=== PATIENT | female | born 1980 | race Caucasian/White ===

== ENCOUNTER 2019-10-04 05:44 | Observation (INO) | payer BC, OTHER ==
[2019-10-04] MEDS ORDERED: Albuterol/Ipratropium NEB.SOL* Albuterol 2.5 MG/Ipratropium 0.5 MG 3 ML INH ONE ×3 (05:54→09:23)
--- NOTE | 2019-10-04 05:57 | ED ---
Shortness of Breath - HPI Summary HPI Summary: Pt. is a 39 y.o female who presents to the ER for worsening cough and SOB. pt. states she was dx with pneumonia last week and just finished a zpak. Pt. states she was starting to feel better until this morning when she felt more short of breath. Pt. tried her albuterol inhaler without improvement. Pt. states she is prone to respiratory infection. 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 Pt. other humphreys denies past medical hx. Sxs are moderate in severity. No current modifying factors. - History of Current Complaint Chief Complaint: EDShortnessOfBreath Time Seen by Provider: 10/04/19 05:50 Hx Obtained From: Patient - Allergy/Home Medications Allergies/Adverse Reactions: Allergies Allergy/AdvReac Type Severity Reaction Status Date / Time No Known Allergies Allergy Verified 10/04/19 05:45 PMH/Surg Hx/FS Hx/Imm Hx Previously Healthy: Yes Infectious Disease History: No Infectious Disease History: Denies: Traveled Outside the [place] in Last 30 Days - Family History Known Family History: Positive: Non-Contributory - Social History Occupation: Employed Full-time Lives: With Family Review of Systems Constitutional: Negative Negative: Fever ENT: Negative Cardiovascular: Negative Negative: Palpitations, Chest Pain Positive: Shortness Of Breath, Cough Gastrointestinal: Negative Negative: Abdominal Pain, Vomiting, Diarrhea Genitourinary: Negative Skin: Negative Neurological: Negative All Other Systems Reviewed And Are Negative: Yes Physical Exam Triage Information Reviewed: Yes Vital Signs On Initial Exam: Initial Vitals Temp Pulse Resp BP Pulse Ox 97.6 F 82 16 119/93 92 10/04/19 05:44 10/04/19 05:44 10/04/19 05:44 10/04/19 05:44 10/04/19 05:44 Vital Signs Reviewed: Yes Appearance: Positive: No Pain Distress - Pt. sitting up in bed in NAD. Audible wheezing noted. Able to speak in full sentences. Skin: Positive: Warm, Dry Head/Face: Positive: Normal Head/Face Inspection Eyes: Positive: Normal, EOMI, SUKUMAR Neck: Positive: Supple Respiratory/Lung Sounds: Positive: Other Procedures - Sedation Patient Received Moderate/Deep Sedation with Procedure: No Diagnostics - Vital Signs Vital Signs Temp Pulse Resp BP Pulse Ox 01/13/20 05:44 97.6 F 82 16 119/93 92 - Laboratory Result Diagrams: 10/04/19 06:19 10/04/19 06:19 Lab Statement: Any lab studies that have been ordered have been reviewed, and results considered in the medical decision making process. Course/Dx - Course Course Of Treatment: Patient presenting with worsening shortness of breath and wheezing. She is afebrile. Oxygen sats are 92 percent on room air. Patient started on DuoNeb neb. We'll obtain labs and chest x-ray. CXR per radiology: IMPRESSION: #. Very mild alveolar opacities at the RIGHT mid to lower lung zone. This may represent. residual scarring given more prominent opacity in this region on the 2012 exam or new mild. inflammatory infiltrate. Laboratory studies unremarkable. 0700: Reexamination patient is feeling a lot better and has had increased breath sounds but is still wheezing. Second DuoNeb and prednisone ordered. On re-exam pt. is feeling much benjy and wheezing has improved. Pt. reqeusting to go home. ship worker is getting pt. set up with a negulizer for home. Given CXR will tx with levaquin. 0920: Before dc pt. started feeling very SOB again and wheezing returned. 02 saturation dropped to 90% at rest. Will give another tx and IV mag. Hospitalist consulted for admission. Case discussed with Dr. Machuca who will see pt. for admission. - Diagnoses Differential Diagnosis/HQI/PQRI: Positive: Asthma, Bronchitis, Pneumonia Provider Diagnoses: Hypoxia, Bronchospasm, acute Discharge ED - Sign-Out/Discharge Documenting (check all that apply): Patient Departure - Discharge Plan Condition: Improved Disposition: HOME - Billing Disposition and Condition Condition: IMPROVED Disposition: Home - Attestation Statements Provider Attestation: I was available for consultation for this patient. I did not evaluate the patient or participate in any medical decision making or disposition decisions unless I am specifically named in the chart as having consulted on the patient. If I have consulted on the patient, please see my own ED note on the patient encounter. Kait Day MD Addendum entered and electronically signed by Mak Gerard PA 10/04/19 10:47: ED Addendum Addendum: Addendum to dispo and condition: Disposition: Admit [facility] Condition: Stable.
[2019-10-04 06:24] LABS: ABS Eosinophils 0.6 10^3/ul (0-0.6); ABS Lymphocytes 2.4 10^3/ul (1.0-4.8); ABS Monocytes 0.6 10^3/ul (0-0.8); ABS Neutrophils 7.1 10^3/ul (1.5-7.7); Eosinophil % 5.7 %; Hematocrit 41 % (35-47); Hemoglobin 14.1 g/dL (12.0-16.0); Lymphocyte % 22.5 %; Mean Corpuscular HGB Conc 34 g/dL (31-36); Mean Corpuscular Hemoglobin 30 pg (27-31); Mean Corpuscular Volume 86 fL (80-97); Mean Platelet Volume 8.9 fL (7.4-10.4); Platelet Count 210 10^3/uL (150-450); Red Blood Count 4.78 10^6 /uL (3.70-4.87); Red Cell Distribution Width 13 % (10-15); White Blood Count 10.8 10^3/uL (3.5-10.8)
[2019-10-04 06:36] LABS: Influenza A Molecular NEGATIVE (Negative); Influenza B Molecular NEGATIVE (Negative)
[2019-10-04 06:41] LABS: Albumin 4.3 g/dL (3.2-5.2); Albumin/Globulin Ratio 1.3 (1-3); BUN/Creatinine Ratio 13.8 (8-20); C Reactive Protein 1.74 mg/L (<8.01); Calcium 9.1 mg/dL (8.6-10.3); EGFR African American 88.2 (>60); EGFR Non-African American 72.9 (>60); Globulin 3.4 g/dL (2-4); Potassium 4.2 mmol/L (3.5-5.0); Total Bilirubin 0.3 mg/dL (0.2-1.0); Total Protein 7.7 g/dL (6.4-8.9)
[2019-10-04] MEDS ORDERED: Magnesium Sulfate 2 GM IV* 2 GM/50 ML BAG IVPB ONE (09:25)
[2019-10-04] MEDS ORDERED: LEVOFLOXACIN 500 MG IVPB ONE (11:00)
[2019-10-04] MEDS ORDERED: ED ONCE IVPB ONE (11:00)
[2019-10-04] MEDS: Albuterol 2.5 MG/3 ML NEB.SOL* (0.083%) INH SCH ×5 (11:03→23:05)
--- NOTE | 2019-10-04 11:51 | HP ---
CC: Dr. Ana Hernandez * HISTORY AND PHYSICAL: DATE OF ADMISSION: 10/04/19 PRIMARY CARE PROVIDER: Dr. Ana Hernandez. CHIEF COMPLAINT: Shortness of breath and wheezing. HISTORY OF PRESENT ILLNESS: Ms. Parnell is a 39-year-old female who on 09/22/19 was diagnosed with pneumonia at Urgent Care. She states that she was given a Z- Darrell, which she completed and an albuterol inhaler. She notes that generally she felt improved; however, continued to have lingering symptoms of runny nose, postnasal drip, and productive cough. She, however, was not feeling short of breath. At approximately 9 p.m. on the night prior to admission, the patient noticed that her breathing had become quite difficult. She states that she would use the albuterol inhaler and have only a few minutes of relief. As her breathing continued to be difficult and she struggled all night, she presented to the emergency room for evaluation. In the ER on presentation, the patient was noted to be incredibly wheezy. She improved after several nebulizer treatments. She got up and ambulated and when she got back into the stretcher, she again was severely short of breath and wheezing. She has had persistently diminished breath sounds throughout. At this point, due to the recurrent wheezing and diminished breath sounds, it was felt that the patient should be observed overnight. The patient denies any fevers or chills in the last couple of days. She has no swelling of her legs. No recent long distance travel. Other than the shortness of breath, she has been feeling well. PAST MEDICAL HISTORY: 1. Pulmonary atresia, status post pulmonary valve replacement in 2008. Prior to that, she had two heart surgeries, one as a and one at the age of 2. 2. . MEDICATIONS: Albuterol 2 puffs inhaled q.4 hours p.r.n. shortness of breath. ALLERGIES: No known drug allergies. FAMILY HISTORY: Mom is living, she is 73, she may have hypertension. She is not 100% sure. Dad is also living, he is 75 and healthy. SOCIAL HISTORY: The patient does not smoke. She drinks alcohol rarely. 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 She is . She has 2 children. Her is her healthcare proxy. REVIEW OF SYSTEMS: Complete 11-system review of systems was obtained. Pertinent positives and negatives are as per HPI, and in addition, the patient does state she continues to bring up yellow green small amounts of sputum. The rest of the review of systems is negative. PHYSICAL EXAMINATION GENERAL: The patient is a well-developed, middle-aged female, seen sitting up in the stretcher, appearing to be slightly winded with talking but in no acute distress. VITAL SIGNS: Blood pressure 112/80, pulse 92, respirations 16, temperature 97.7 , O2 sat 94% on room air. HEENT: Pupils are equal. Extraocular muscles are intact. Oropharynx is clear and moist. PULMONARY: Lungs are clear to auscultation bilaterally, but breath sounds are markedly diminished throughout. CARDIAC: Normal S1 and S2. Regular rate and rhythm. I do not appreciate any murmurs. There is no lower extremity edema. ABDOMEN: Bowel sounds present. Abdomen is soft, nontender, nondistended. MUSCULOSKELETAL: There is no cyanosis or clubbing of the digits. There is full active range of motion of all 4 extremities. SKIN: Visible areas of skin are warm, dry, and without rash. NEUROLOGIC: Cranial nerves II through XII are grossly intact. Sensation is intact to light touch throughout. Strength is 5/5 and symmetric to both upper and lower extremities bilaterally. PSYCH: The patient is alert. She is oriented x3. Affect appears appropriate. LABORATORY DATA: WBC 10.8, hemoglobin 14.1, hematocrit 41, platelets 210. Sodium 138, potassium 4.2, chloride 103, CO2 of 28, BUN 12, creatinine 0.87, glucose 115, calcium 9.1, bilirubin 0.3, AST 14, ALT 11, alk phos 100, CRP 1.74 , albumin 4.3. Influenza A and B negative. Chest x-ray: Very mild alveolar opacities at the right mid to lower lung zones. This may represent residual scarring given more prominent opacity in this region on 2012 exam or new mild inflammatory infiltrates. ASSESSMENT AND PLAN: Ms. Parnell is a 39-year-old female with a history of pulmonary atresia with intact ventricular septum, status post pulmonary valve replacement in 2008, who presents to the emergency room with complaints of shortness of breath. 1. Dyspnea. At this point, the etiology behind this is not completely clear, though I do suspect there is likely an infectious process, which may have triggered reactive airway disease. The patient states that she never fully improved from her pneumonia that was diagnosed on 09/22/19. As she reports this history, we will administer Levaquin 500 mg IV now as well as run albuterol nebulizers every 4 hours while awake and administer Solu-Medrol 40 mg IV q.12 hours. At this point, the patient's breathing is more stable than when she presented to the emergency room and I am not getting the full picture of how bad the wheezing was on presentation. The patient may benefit from seeing a tinsmith helper as an outpatient once she recovers from this acute illness. The patient does have a pulmonary valve that has been in place since 2008. The patient's last echocardiogram was in 2018. At that time, reportedly everything was functioning appropriately. It seems very unlikely that her shortness of breath is secondary to a cardiac process; however, if she fails to improve with treatment for reactive airways and possible lingering infection, cardiac workup could be considered. 2. DVT prophylaxis: According to the Adult Thrombosis Prophylaxis Risk Factor Assessment Guide, the patient has a total risk factor score of 1, making her low risk. Ambulation will be utilized as DVT prophylaxis. 3. Code status is full. TIME SPENT: Fifty five minutes was spent admitting this patient. [id number]/[facility] #: [id number] JOSE
[2019-10-04] MEDS: methylPREDNISolone SOD 40 MG* 1 ML VIAL IV SCH (21:25)
[2019-10-05] MEDS: Albuterol 2.5 MG/3 ML NEB.SOL* (0.083%) INH SCH ×2 (03:05→09:23)
[2019-10-05 06:39] LABS: ABS Monocytes 0.4 10^3/ul (0-0.8); ABS Neutrophils 17.9 10^3/ul (1.5-7.7); Hematocrit 39 % (35-47); Hemoglobin 13.6 g/dL (12.0-16.0); Lymphocyte % 5.2 %; Mean Corpuscular HGB Conc 35 g/dL (31-36); Mean Corpuscular Hemoglobin 30 pg (27-31); Mean Corpuscular Volume 86 fL (80-97); Mean Platelet Volume 9.4 fL (7.4-10.4); Platelet Count 252 10^3/uL (150-450); Red Cell Distribution Width 14 % (10-15); White Blood Count 19.4 10^3/uL (3.5-10.8)
[2019-10-05 09:09] VITALS: BP 95/66
[2019-10-05] MEDS: methylPREDNISolone SOD 40 MG* 1 ML VIAL IV SCH (09:10)
[2019-10-05] MEDS ORDERED: Levofloxacin 500 MG IVPREMIX(* 500 MG/100 ML BAG IVPB SCH (12:00)
--- NOTE | 2019-10-08 03:11 | DS ---
DISCHARGE SUMMARY: DATE OF ADMISSION: 10/04/19 DATE OF DISCHARGE: 10/05/19 DISCHARGE DIAGNOSES: 1. Bronchitis with bronchospasm. 2. History of congenital heart disease, status pulmonic valve replacement in 2008 for pulmonary atresia. 3. History of recent pneumonia. HISTORY: Toshia Parnell is a 39-year-old woman admitted with wheezing and shortness of breath. Please see the dictated admission note for details of the present illness, past medical history, family history, social and personal history, review of systems, and physical examination. LABORATORY DATA: CBC: WBC 10.8, H and H 14.1/41, MCV 86, PLT 210K. CBC on , WBC 19.4, H and H 13.6/39, MCV 86, PLT 252K. Chemistries: Sodium 138, potassium 4.2, chloride 103, CO2 28, BUN and creatinine 12/0.87, glucose 115. Rest of her comprehensive metabolic panel is within normal limits. CRP 1.74, repeat 1.27. BNP 43 (normal). Serology for influenza A and B was negative. IMAGING: Chest x-ray, 10/04/19, showed mild alveolar opacities at the right mid to lower lung zone, residual scarring versus mild inflammatory infiltrate. Of note, the patient had a more prominent opacity in this region in 2011. HOSPITAL COURSE: The patient was admitted. In the emergency room, she received DuoNeb. Second DuoNeb and prednisone was ordered. On re-exam, the patient felt better with improved wheezing with the plan to go home on levofloxacin. Prior to leaving the ER, however , the patient felt very short of breath with return of wheezing and drop of O2 saturation to 90%. She was given another treatment and IV magnesium. She was then admitted to the hospital. She was received IV levofloxacin, albuterol nebulizers every 4 hours while awake , and Solu-Medrol 40 mg IV q.12 hours. When seen on 10/05/19, she was much better. Her lungs were clear without wheezing on forced expiration. Heart was regular. Abdomen was soft, nontender. Extremities showed no edema. It was felt that she might have recurrent pneumonia. She had been treated for pneumonia on 09/22/19, and felt she did not completely recover. The plan was to get a CT of her chest without contrast and discharge her on levofloxacin and prednisone. The patient, however, had a job interview on 10/05/19 and wanted to leave the hospital prior to getting the CT. It was felt that this could be done as an outpatient. MEDICATIONS AT THE TIME OF DISCHARGE: She is being discharged on levofloxacin 750 mg daily for 5 days, prednisone 50 mg daily for 4 additional days, albuterol HFA 2 puffs q.4 h.or DuoNeb q.4 h. p.r.n. via handheld nebulizer p.r.n. wheezing. FOLLOWUP: Followup will be with myself, Dr. Ana Hernandez, in 4 to 7 days. She was discharged home in improved condition. DIET: Regular. ACTIVITIES: As tolerated. [id number]/[facility] #: [id number]
== END 2019-10-05 11:10 | disposition home or self-care (01) ==
LOC: ED 05:44 → MED 10:10
PROVIDERS: ADMIT Hospitalist; ATTEND Internal Medicine Geriatric Medicine
DX: R06.02 Shortness of breath (principal); J98.01 Acute bronchospasm; J18.9 Pneumonia, unspecified organism; R05 Cough; R09.02 Hypoxemia; Z95.4 Presence of other heart-valve replacement
CPT/HCPCS: 36415; 71046; 80053; 83880; 85025; 86140; 94640; 96365; 96375; 96376; 99284; A9270-GY; G0378; J1956; J2920; J3475; J7512

== ENCOUNTER 2019-10-16 01:48 | Emergency (ER) | payer OTHER ==
[2019-10-16] MEDS ORDERED: methylPREDNISolone 125 MG* 2 ML VIAL IV ONE (02:44)
[2019-10-16] MEDS ORDERED: EPINEPHRINE 1 MG/ML 1 ML VIAL IM ONE (02:44)
[2019-10-16] MEDS ORDERED: Albuterol 0.5% CONC NEB.SOL* 5 MG/ML 20 ml BOT INH ONE (02:44)
[2019-10-16] MEDS ORDERED: Magnesium Sulfate 2 GM IV* 2 GM/50 ML BAG IVPB ONE (02:48)
[2019-10-16 03:12] LABS: ABS Basophils 0.1 10^3/ul (0-0.2); ABS Eosinophils 0.9 10^3/ul (0-0.6); ABS Lymphocytes 1.8 10^3/ul (1.0-4.8); ABS Monocytes 1.1 10^3/ul (0-0.8); Eosinophil % 6.3 %; Hematocrit 37 % (35-47); Hemoglobin 12.2 g/dL (12.0-16.0); Lymphocyte % 11.9 %; Mean Corpuscular HGB Conc 33 g/dL (31-36); Mean Corpuscular Hemoglobin 28 pg (27-31); Mean Corpuscular Volume 86 fL (80-97); Mean Platelet Volume 8.6 fL (7.4-10.4); Platelet Count 255 10^3/uL (150-450); Red Cell Distribution Width 14 % (10-15); White Blood Count 14.8 10^3/uL (3.5-10.8)
[2019-10-16 03:29] LABS: ALT 26 U/L (7-52); AST 19 U/L (13-39); Albumin 3.8 g/dL (3.2-5.2); Albumin/Globulin Ratio 1.4 (1-3); Alkaline Phosphatase 87 U/L (34-104); Anion Gap 7 mmol/L (2-11); BUN/Creatinine Ratio 18.1 (8-20); Blood Urea Nitrogen 13 mg/dL (6-24); CO2 Carbon Dioxide 26 mmol/L (22-32); Chloride 103 mmol/L (101-111); EGFR African American 109.7 (>60); EGFR Non-African American 90.7 (>60); Globulin 2.8 g/dL (2-4); Glucose 115 mg/dL (70-100); Potassium 4.1 mmol/L (3.5-5.0); Sodium 136 mmol/L (135-145); Total Protein 6.6 g/dL (6.4-8.9)
[2019-10-16 03:36] LABS: HCG Pregnancy < 0.60 mIU/mL
[2019-10-16] MEDS ORDERED: Ondansetron INJ* 2 MG/ML VIAL IV ONE (03:54)
--- NOTE | 2019-10-16 04:08 | ED ---
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 On 09/22/2019 the pt was diagnosed with PNA and recovered after a Z- pack course. 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 She recovered afterwards but her SOB worsened today. Taking albuterol did not alleviate symptoms. She finished a course of prednisone several days ago, at which point her breathing was good. She rates her current pain severity a 0/10. No aggravating or alleviating factors noted. She also denies any fever. - History of Current Complaint Chief Complaint: EDShortnessOfBreath Time Seen by Provider: 10/16/19 02:37 Hx Obtained From: Patient Onset/Duration: Sudden Onset, Lasting Hours, Still Present Timing: Constant Current Severity: Moderate Dyspnea At: Rest Aggravating Factors: Nothing Alleviating Factors: Nothing Associated Signs & Symptoms: Negative - fever - Allergy/Home Medications Allergies/Adverse Reactions: Allergies Allergy/AdvReac Type Severity Reaction Status Date / Time No Known Allergies Allergy Verified 10/04/19 05:45 Home Medications: Home Medications Albuterol Sulfate [Albuterol Sulfate Hfa] 2 puff INH Q4HR 10/16/19 [History Confirmed 10/16/19] PMH/Surg Hx/FS Hx/Imm Hx Cardiovascular History: Reports: Other Cardiovascular Problems/Disorders - valve replacement Respiratory History: Denies: Hx Asthma Sensory History: Denies: Hx Cataracts, Hx Contacts or Glasses, Hx Hearing Aid, Other Sensory Impairments Opthamlomology History: Denies: Hx Cataracts, Hx Contacts or Glasses, Other Sensory Impairments - Surgical History Surgical History: Yes Surgery Procedure, Year, and Place: csections - Immunization History Date of Tetanus Vaccine: unk Date of Influenza Vaccine: 06/2020 Infectious Disease History: No Infectious Disease History: Denies: Traveled Outside the [place] in Last 30 Days - Family History Known Family History: Negative: Renal Disease - Social History Alcohol Use: Rare Substance Use Type: Reports: None Smoking Status (MU): Never Smoked Tobacco Review of Systems Negative: Fever Positive: Shortness Of Breath All Other Systems Reviewed And Are Negative: Yes Physical Exam - Summary Physical Exam Summary: Appearance: Well-appearing, somewhat obese, speaking in half sentences in mild respiratory distress Skin: Warm, dry, no obvious rash Eyes: sclera anicteric, no conjunctival pallor ENT: mucous membranes moist, pharynx appears normal Neck: Supple, nontender Respiratory: Mild respiratory distress, diminished aeration with expiratory wheezes diffusely Cardiovascular: Normal S1, S2. No murmurs. Normal distal pulses in tibial and radial bilaterally. Abdomen: Soft, nontender, normal active bowel sounds present Musculoskeletal: Normal, Strength/ROM Intact Neurological: A&Ox3, awake and alert, mentation is normal, speech is fluent and appropriate Psychiatric: affect is normal, does not appear anxious or depressed Triage Information Reviewed: Yes Vital Signs On Initial Exam: Initial Vitals Temp Pulse Resp BP Pulse Ox 97.8 F 102 22 120/81 94 10/16/19 01:50 10/16/19 01:50 10/16/19 01:50 10/16/19 01:50 10/16/19 01:50 Vital Signs Reviewed: Yes Procedures - Sedation Patient Received Moderate/Deep Sedation with Procedure: No Diagnostics - Vital Signs Vital Signs Temp Pulse Resp BP Pulse Ox 10/16/19 03:18 90 18 100 10/16/19 03:00 95 26 90 10/16/19 02:52 90 18 120/86 91 10/16/19 02:25 104 23 96 10/16/19 02:22 138/82 10/16/19 01:50 97.8 F 102 22 120/81 94 - Laboratory Lab Results: Lab Results 10/16/19 10/16/19 10/16/19 Range/Units 03:03 03:03 03:03 WBC 14.8 H (3.5-10.8) 10^3/uL RBC 4.30 (3.70-4.87) 10^6 /uL Hgb 12.2 (12.0-16.0) g/dL Hct 37 (35-47) % MCV 86 (80-97) fL MCH 28 (27-31) pg MCHC 33 (31-36) g/dL RDW 14 (10-15) % Plt Count 255 (150-450) 10^3/uL MPV 8.6 (7.4-10.4) fL Neut % (Auto) 74.2 % Lymph % (Auto) 11.9 % [place] % (Auto) 7.2 % Eos % (Auto) 6.3 % Baso % (Auto) 0.4 % Absolute Neuts (auto) 11.0 H (1.5-7.7) 10^3/ul Absolute Lymphs (auto) 1.8 (1.0-4.8) 10^3/ul Absolute Monos (auto) 1.1 H (0-0.8) 10^3/ul Absolute Eos (auto) 0.9 H (0-0.6) 10^3/ul Absolute Basos (auto) 0.1 (0-0.2) 10^3/ul Absolute Nucleated RBC 0.0 10^3/ul Nucleated RBC % 0.0 D-Dimer, Quantitative (Less Than 230) ng/mL Sodium 136 (135-145) mmol/L Potassium 4.1 (3.5-5.0) mmol/L Chloride 103 (101-111) mmol/L Carbon Dioxide 26 (22-32) mmol/L Anion Gap 7 (2-11) mmol/L BUN 13 (6-24) mg/dL Creatinine 0.72 (0.51-0.95) mg/dL Est GFR ( Amer) 109.7 (>60) Est GFR (Non-Af Amer) 90.7 (>60) BUN/Creatinine Ratio 18.1 (8-20) Glucose 115 H (70-100) mg/dL Lactic Acid 1.2 (0.5-2.0) mmol/L Calcium 9.0 (8.6-10.3) mg/dL Total Bilirubin 0.40 (0.2-1.0) mg/dL AST 19 (13-39) U/L ALT 26 (7-52) U/L Alkaline Phosphatase 87 (34-104) U/L Troponin I 0.00 (<0.03) ng/mL Total Protein 6.6 (6.4-8.9) g/dL Albumin 3.8 (3.2-5.2) g/dL Globulin 2.8 (2-4) g/dL Albumin/Globulin Ratio 1.4 (1-3) Beta HCG, Quant < 0.60 mIU/mL 10/16/19 Range/Units 03:03 WBC (3.5-10.8) 10^3/uL RBC (3.70-4.87) 10^6 /uL Hgb (12.0-16.0) g/dL Hct (35-47) % MCV (80-97) fL MCH (27-31) pg MCHC (31-36) g/dL RDW (10-15) % Plt Count (150-450) 10^3/uL MPV (7.4-10.4) fL Neut % (Auto) % Lymph % (Auto) % [place] % (Auto) % Eos % (Auto) % Baso % (Auto) % Absolute Neuts (auto) (1.5-7.7) 10^3/ul Absolute Lymphs (auto) (1.0-4.8) 10^3/ul Absolute Monos (auto) (0-0.8) 10^3/ul Absolute Eos (auto) (0-0.6) 10^3/ul Absolute Basos (auto) (0-0.2) 10^3/ul Absolute Nucleated RBC 10^3/ul Nucleated RBC % D-Dimer, Quantitative 252 H (Less Than 230) ng/mL Sodium (135-145) mmol/L Potassium (3.5-5.0) mmol/L Chloride (101-111) mmol/L Carbon Dioxide (22-32) mmol/L Anion Gap (2-11) mmol/L BUN (6-24) mg/dL Creatinine (0.51-0.95) mg/dL Est GFR ( Amer) (>60) Est GFR (Non-Af Amer) (>60) BUN/Creatinine Ratio (8-20) Glucose (70-100) mg/dL Lactic Acid (0.5-2.0) mmol/L Calcium (8.6-10.3) mg/dL Total Bilirubin (0.2-1.0) mg/dL AST (13-39) U/L ALT (7-52) U/L Alkaline Phosphatase (34-104) U/L Troponin I (<0.03) ng/mL Total Protein (6.4-8.9) g/dL Albumin (3.2-5.2) g/dL Globulin (2-4) g/dL Albumin/Globulin Ratio (1-3) Beta HCG, Quant mIU/mL Result Diagrams: 10/16/19 03:03 10/16/19 03:03 Lab Statement: Any lab studies that have been ordered have been reviewed, and results considered in the medical decision making process. - EKG 0305 Cardiac Rate: NL - 94 bpm EKG Rhythm: Sinus Rhythm Summary of EKG Findings: EKG @ 0305 reveals NSR @ 94 bpm, probable left atrial enlargement. No STEMI. Re-Evaluation - Re-Evaluation First Eval Re-Evaluation Time: 04:43 Change: Improved - Pt has much improved aeration with no wheezing at present. She feels better and her breathing is no longer labored. She feels comfortable with discharge. I am going to keep her on oral steroids for the next several days but also start her on a steroid inhaler. 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 On 09/22/2019 the pt was diagnosed with PNA and recovered after a Z-pack course. 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 She recovered afterwards but her SOB worsened today. Lab results normal except for WBC 14.8, Absolute Neuts 11, Absolute Monos 1.1, Absolute Eos 0.9, D-Dimer 252, Glucose 115. EKG @ 0305 reveals NSR @ 94 bpm, probable left atrial enlargement. No STEMI. Final dx are bronchus spasm and respiratory distress. Pt will be discharged home with PCP follow up. Pt is agreeable with this plan. - Diagnoses Provider Diagnoses: Bronchial spasm, Respiratory distress Discharge ED - Sign-Out/Discharge Documenting (check all that apply): Patient Departure - discharge - Discharge Plan Condition: Improved Disposition: HOME Prescriptions: Beclomethasone Dipropionate [Qvar Redihaler] 80 mcg IN BID #1 aer predniSONE 20 mg TAB [Deltasone 20 MG TAB*] 40 mg PO DAILY 7 Days #14 tab Patient Education Materials: Bronchospasm (ED) Referrals: Ana Hernandez MD [Primary Care Provider] - 3 Days - Billing Disposition and Condition Condition: IMPROVED Disposition: Home - Attestation Statements Document Initiated by Jania: Yes Documenting Scribe: Aron Pope Provider For Whom Jania is Documenting (Include Credential): Deangelo Laguerre MD Scribe Attestation: Aron Soto, scribed for Deangelo Laguerre MD on 10/18/19 at 1620. Scribe Documentation Reviewed: Yes Provider Attestation: The documentation as recorded by the Aron bejarano accurately reflects the service I personally performed and the decisions made by me, Deangelo Laguerre MD Status of Scribe Document: Viewed
[2019-10-16 05:10] VITALS: BP 126/70
== END 2019-10-16 05:10 | disposition home or self-care (01) ==
LOC: ED 01:48
DX: J98.01 Acute bronchospasm (principal); R06.03 Acute respiratory distress
CPT/HCPCS: 36415; 71046; 80053; 83605; 84484; 84702; 85025; 85379; 87040; 93005; 96365; 96366; 96372; 96375; 99284; J2405; J2930; J3475; J7611